=== PATIENT | female | born 1975 | race Caucasian/White ===

== ENCOUNTER → 2020-03-19 07:48 | Outpatient (BNVA) | payer OTHER, SELFPAY | PROVIDERS: PCP Internal Medicine; Visit Provider Internal Medicine ==

== ENCOUNTER → 2020-05-07 07:59 | Outpatient (BNVA) | payer OTHER, SELFPAY | PROVIDERS: PCP Internal Medicine; Visit Provider Internal Medicine ==

== ENCOUNTER 2020-05-26 16:37 | Outpatient (REF) | payer OTHER, SELFPAY ==
[2020-05-26 18:53] LABS: Free T4 (Free Thyroxine) 0.75 ng/dL (0.71-1.85); Thyroid Stimulating Hormone 4.49 uIU/mL (0.32-4.0); Vitamin D 25-OH Total 36.9 ng/mL (>30)
[2020-05-28 05:42] LABS: Triiodothyronine T3 Total 111 ng/dL (76-181)
== END 2020-05-26 16:38 | disposition home or self-care (01) ==
LOC: HO.LAB 16:37
PROVIDERS: Visit Provider Internal Medicine
DX: E05.00 Thyrotoxicosis with diffuse goiter without thyrotoxic crisis or storm (principal); E55.9 Vitamin D deficiency, unspecified
CPT/HCPCS: 36415; 82306; 84439; 84443; 84480

== ENCOUNTER 2020-06-16 16:50 | Outpatient (REF) | payer OTHER, SELFPAY ==
[2020-06-16 18:48] LABS: Free T4 (Free Thyroxine) 0.94 ng/dL (0.71-1.85); Thyroid Stimulating Hormone 1.59 uIU/mL (0.32-4.0)
[2020-06-18 05:51] LABS: Triiodothyronine T3 Total 106 ng/dL (76-181)
[2020-06-21 18:57] LABS: FT4 by Equilib. Dialysis 1.4 ng/dL (0.9-2.2)
== END 2020-06-16 16:51 | disposition home or self-care (01) ==
LOC: HO.LAB 16:50
PROVIDERS: PCP Internal Medicine; Visit Provider Internal Medicine
DX: E05.00 Thyrotoxicosis with diffuse goiter without thyrotoxic crisis or storm (principal)
CPT/HCPCS: 36415; 84439; 84443; 84480

== ENCOUNTER → 2020-06-26 07:30 | Outpatient (BNVA) | payer OTHER, SELFPAY | PROVIDERS: PCP Internal Medicine; Visit Provider Internal Medicine ==

== ENCOUNTER 2022-11-26 12:22 | Outpatient (AMB) | payer OTHER, SELFPAY ==
[2022-11-26 12:26] VITALS: BP 114/64; PULSE 73; O2SAT 97; BMI 25.8
--- NOTE | 2022-11-26 12:26 | MHC.PC.OV ---
Vital Signs 11/26/22 12:26 Height 5 ft 4 in Weight 150 lb 8 oz BMI 25.8 BP 114/64 Blood Pressure Location Lt brachial Position Sitting Pulse 73 Pulse Source Pulse Oximeter Pulse Oximetry (%) 97 Oxygen Delivery Method Room Air Intake Visit Reasons: Thyroid swelling Allergies Aspirin Allergy (Unknown, Uncoded 08/25/21 13:47) Tremors Medication List - Last Reconciled 11/26/22 by Perla Gonzales MD cetirizine (Zyrtec) 10 mg PO DAILY PRN lorazepam 1 mg PO TID methimazole 5 mg PO daily; 30 days montelukast 10 mg PO DAILY multivitamin 1 tab PO DAILY Tobacco use date assessed: 11/26/22 Dental Screening Dental Screen Date: 11/26/22 Did you have a dental visit in the last 12 months?: No Did you have a dental problem in the last 6 months where you did not have access to dental care?: No Was dental information given to patient?: Patient has dentist HPI HPI Comments History of Present Illness Details Pt presents for PE. PFS Medical History (Updated 11/26/22 @ 14:33 by Perla Gonzales MD) Vitamin D deficiency Annual physical exam Goiter Allergic rhinitis Anxiety Graves disease Surgical History No pertinent past surgical history Family History Unknown Unknown family medical history Mother Thyroid disease Social History Household Members: Significant Other Housing: House Patient Tobacco Use Status: Never used Tobacco e-Cigarette/Vaping Use: Never Used service: No Current occupational status: employed Cognitive needs: No Hearing needs: No Vision needs: No Questionnaire PHQ-9 Over the last 2 weeks, how often have you been bothered by any of the following problems? 1. Little interest or pleasure in doing things: not at all 2. Feeling down, depressed, or hopeless: several days 3. Trouble falling or staying asleep, or sleeping too much: several days 4. Feeling tired or having little energy: not at all 5. Poor appetite or overeating: not at all 6. Feeling bad about yourself - or that you are a failure or have let yourself or your family down: not at all 7. Trouble concentrating on things, such as reading the newspaper or watching television: not at all 8. Moving or speaking so slowly that other people could have noticed. Or the opposite - being so fidgety or restless that you have been moving around a lot more than usual: not at all 9. Thoughts that you would be better off or of hurting yourself in some way: not at all Total score: 2 Depression Screening Interpretation: Negative Depression Screening Done: Yes Source: Developed by Drs. Jacob Lewis, Jihan Benitez, Luigi Gutierrez and colleagues, with an educational deepa from [employer]. Thrive Questionnaire Date Thrive assessed: 11/26/22 I am a: Patient What is your living situation today?: I have a steady place to live Within the past 12 months, did the food you bought not last and you didn't have the money to get more?: Never true Within the past 12 months, did you worry whether your food would run out before you got money to buy more?: Never true Do you have trouble paying for medicines?: No Do you have trouble getting transportation to medical appointments?: No Do you have trouble paying your heating and electricity bill?: No Do you have trouble taking care of your child, family member or friend?: No Do you have trouble with day-to-day activities such as bathing, preparing meals, shopping, managing finances, etc.?: No Are you currently unemployed and looking for a job?: No Are you interested in more education?: No Please select the resources that you would like help with: None Currently or been in a relationship where the following occur: no concerns reported AUDIT C Alcohol Use Questionnaire (AUDIT-C) 1. How often do you have a drink containing alcohol?: Never 3. How often do you have six or more drinks on one occasion?: Never Total Score: 0 Score Reviewed/Action Taken: Yes WANDER-7 AMB Questionnaire WANDER-7 Date WANDER - 7 assessed: 11/26/22 Feeling nervous, anxious, or on edge: 0 = Not at all Not being able to stop or control worryin = Not at all Worrying too much about different things: 0 = Not at all Trouble relaxin = Not at all Being so restless that it is hard to sit still: 0 = Not at all Becoming easily annoyed or irritable: 0 = Not at all Feeling afraid as if something awful might happen: 0 = Not at all Total WANDER-7 score (0-4 normal; 5-9 mild; 10-14 moderate; 15-21 severe): 0 Source: Developed by Drs. Jacob Lewis, Jihan Benitez, Luigi Gutierrez and colleagues, with an educational deepa from [employer]. Review of Systems Const All systems reviewed & are unremarkable except as noted in HPI and below Reports no additional complaints Eyes Reports no additional complaints ENT Reports no additional complaints Card Reports no additional complaints Resp Reports no additional complaints GI Reports no additional complaints Reports no additional complaints Physical exam (Primary Care) Vital Signs: Last Vital Signs Pulse 73 11/26/22 12:26 BP 114/64 11/26/22 12:26 Pulse Ox 97 11/26/22 12:26 Oxygen Delivery Method Room Air 11/26/22 12:26 BMI result Body Mass Index 25.8 Tobacco/Smoking Status: Tobacco use Status Tobacco use date assessed 11/26/22 11/26/22 12:29 Patient Tobacco Use Status Never used Tobacco 11/26/22 12:29 e-Cigarette/Vaping Use Never Used 11/26/22 12:29 Depression Screening Interpretation: Negative Thrive Assessment: Date of Thrive Assessment Date Thrive assessed 08/25/21 11/26/22 12:29 Currently or been in a relationship where the following occur: no concerns reported Const General: no acute distress HENMT Head: Yes normal to inspection General nose exam: Normal external nose present Face and sinus: Yes normal facial exam Eyes General: appearance normal, both eyes and all related structures Neck Neck: Yes no lymphadenopathy and Yes supple Resp Effort & Inspection: normal respiratory effort Auscultation: clear to auscultation bilaterally Cardio Rhythm: regular rhythm Heart sounds: S1 normal heart sound present and S2 normal heart sound present GI Inspection: Yes normal to inspection Palpation (GI): Soft to palpation Percussion: Yes normal to percussion Auscultation: normal bowel sounds Assessment and Plan Assessment & Plan (1) Graves disease: Comment: on Methimazole Code(s): E05.00 - Thyrotoxicosis with diffuse goiter without thyrotoxic crisis or storm Plan: Check TSH patient has an appointment with a new social science analyst in March (2) Anxiety: Comment: /, f/u psychiatristHair pSYCH Code(s): F41.9 - Anxiety disorder, unspecified (3) Annual physical exam: Code(s): Z00.00 - Encounter for general adult medical examination without abnormal findings Plan: Well-balanced diet regular physical activity discussed with the patient she will return for fasting blood work. Colon cancer screening discussed with the patient. she declined colonoscopy. Cologuard will be checked. 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 Panel Fast Today E04.2 - Nontoxic multinodular goiter, E05.00 - Thyrotoxicosis with diffuse goiter without thyrotoxic crisis or storm Lipid Panel Today E04.2 - Nontoxic multinodular goiter, E05.00 - Thyrotoxicosis with diffuse goiter without thyrotoxic crisis or storm TSH reflex Free T4 Today E04.2 - Nontoxic multinodular goiter, E05.00 - Thyrotoxicosis with diffuse goiter without thyrotoxic crisis or storm Vitamin D 25-OH Total Today E04.2 - Nontoxic multinodular goiter, E05.00 - Thyrotoxicosis with diffuse goiter without thyrotoxic crisis or storm Referrals Cologuard Test Z12.11 - Encounter for screening for malignant neoplasm of colon, Z12.12 - Encounter for screening for malignant neoplasm of rectum Coding Level of Care Code Est Pt Prev Care 40-64y(50088) Diagnoses Graves disease E05.00 Anxiety F41.9 Annual physical exam Z00.00
== END 2022-11-26 14:37 | disposition home or self-care (01) ==
PROVIDERS: PCP Internal Medicine; Visit Provider Internal Medicine
DX: E05.00 Thyrotoxicosis with diffuse goiter without thyrotoxic crisis or storm (principal); F41.9 Anxiety disorder, unspecified; Z00.00 Encounter for general adult medical examination without abnormal findings
CPT/HCPCS: 99396

== ENCOUNTER 2022-12-03 12:19 | Outpatient (REF) | payer OTHER, SELFPAY ==
[2022-12-03 13:32] LABS: MANUAL DIFF FLAG NO
[2022-12-03 13:54] LABS: Basophils Absolute Auto 0.1 X10*3/uL (0.0-0.2); Basophils Percent Auto 0.6 % (0-2); Eosinophils Absolute Auto 0.2 X10*3/uL (0.0-0.4); Eosinophils Percent Auto 2.2 % (0-4); Hematocrit 42.9 % (37.0-47.0); Hemoglobin 14.6 g/dl (12.0-16.0); Imm Gran Abs Auto 0.02 X10*3/uL (0.00-0.03); Imm Gran Pct Auto 0.2 % (0.0-0.4); Lymphocytes Absolute Auto 2.5 X10*3/uL (1.2-4.9); Lymphocytes Percent Auto 28.3 % (20-40); Mean Corpuscular Hemoglobin 31.6 pg (27.0-33.0); Mean Corpuscular Volume 92.9 fL (80.0-98.0); Mean Platelet Volume 9.6 fL (9.4-12.3); Monocytes Absolute Auto 0.7 X10*3/uL (0.1-1.2); Monocytes Percent Auto 7.6 % (2-11); Neutrophils Absolute Auto 5.4 x10*3/uL (2.0-8.3); Neutrophils Percent Auto 61.1 % (45-73); Platelet Count 277 X10*3/uL (160-400); Red Blood Count 4.62 X10*6/uL (4.20-5.50); Red Cell Distribution Width 12.1 % (11.0-16.0); White Blood Count 8.9 X10*3/uL (4.8-10.8)
[2022-12-03 14:50] LABS: Alanine Aminotransferase 17 U/L (0-31); Albumin Level 4.3 g/dL (3.5-5.0); Alkaline Phosphatase 66 U/L (39-117); Anion Gap 14 (12-20); Aspartate Amino Transferase 18 U/L (5-31); Bilirubin Total 0.8 mg/dL (0.0-1.0); Blood Urea Nitrogen 9 mg/dL (9-16); Carbon Dioxide 24 mmol/L (22-29); Chloride 105 mmol/L (96-108); Cholesterol 158 mg/dL (<200); Estimated Glomerular Filt Rate > 60; Glucose Fasting 90 mg/dL (60-99); HDL Cholesterol 42 mg/dL (>40); LDL Cholesterol Calculated 98 mg/dL (<100); Potassium 3.8 mmol/L (3.3-5.1); Sodium 139 mmol/L (135-145); Total Protein 7.5 g/dL (6.5-8.0); Triglycerides 91 mg/dL (<150)
[2022-12-03 14:58] LABS: TSH reflex Free T4 0.01 uIU/mL (0.32-4.0); Vitamin D 25-OH Total 33.2 ng/mL (>30)
[2022-12-03 16:12] LABS: Free T4 (Free Thyroxine) 1.21 ng/dL (0.71-1.85)
== END 2022-12-03 12:20 | disposition home or self-care (01) ==
LOC: HO.HMGCLDS 12:19
PROVIDERS: PCP Internal Medicine; Visit Provider Internal Medicine
DX: E04.2 Nontoxic multinodular goiter (principal); E05.00 Thyrotoxicosis with diffuse goiter without thyrotoxic crisis or storm
CPT/HCPCS: 36415; 80053; 80061; 82306; 84439; 84443; 85025

== ENCOUNTER 2023-07-06 11:04 | Outpatient (AMB) | payer OTHER, SELFPAY ==
[2023-07-06 11:32] VITALS: BP 110/80; PULSE 58; TEMP 36.2; O2SAT 99; BMI 24.0
--- NOTE | 2023-07-06 11:32 | AM.OFFWIN_ITS ---
Intake Vital Signs 07/06/23 11:32 Height 5 ft 4 in Weight 140 lb BMI 24.0 BP 110/80 Blood Pressure Location Lt brachial Position Sitting Pulse 58 Pulse Source Pulse Oximeter Temp 97.2 F Temp Source Temporal Artery Scan Pulse Oximetry (%) 99 Oxygen Delivery Method Room Air Intake Visit Reasons: EP dog bite lft hand Intake Note: pt is here today for dog bite lft hand started tuesday Patient Tobacco Use Status: Never used Tobacco Allergies Aspirin Allergy (Unknown, Uncoded 08/25/21 13:47) Tremors Do you need a note to return to daycare/school/sports/work: Yes HPI EP dog bite lft hand HPI Details 48-year-old female patient presents toda y following a dog bite on her left hand. She states that she was trying to separate 2 fighting dogs this past Tuesday, when her roommates [place] dog bit her several times on her left hand and wrist. She reports that dog is up-to-date on all vaccinations. She has been cleansing the area with soap and water, applying bacitracin to healing scabs. She denies any significant pain 2 areas. She reports she has good range of motion in hand, wrist, and all fingers. She states she was encouraged by coworkers to come be seen for antibiotics. [facility] Medical History Vitamin D deficiency Annual physical exam Goiter Allergic rhinitis Anxiety Graves disease Surgical History No pertinent past surgical history Family History Unknown Unknown family medical history Mother Thyroid disease Social History Household Members: Significant Other Housing: House Patient Tobacco Use Status: Never used Tobacco e-Cigarette/Vaping Use: Never Used service: No Current occupational status: employed Cognitive needs: No Hearing needs: No Vision needs: No Review of Systems Const All systems reviewed & are unremarkable except as noted in HPI and below Physical Exam Vital Signs: BMI result Body Mass Index 24.0 Const General: cooperative, healthy appearing and no acute distress Resp Effort & Inspection: normal respiratory effort Skin Other: Multiple healing/scabbed puncture wounds to dorsal aspect of left hand and medial left wrist, most significant at left MCP. No surrounding erythema, warmth. No drainage, swelling, or edema. Full ROM hand, wrist, all fingers. Extrem General: Yes capillary refill normal and Yes no clubbing, cyanosis or edema Psych Appearance: grossly normal Mental Status: mental status grossly normal Speech and movement: Normal speech and movement present Assessment & Plan Assessment & Plan (1) Dog bite of multiple sites of left hand and fingers: Code(s): S61.452A - Open bite of left hand, initial encounter; S61.259A - Open bite of unspecified finger without damage to nail, initial encounter; W54.0XXA - Bitten by dog, initial encounter Qualifiers: Encounter type: initial encounter Qualified Code(s): S61.452A - Open bite of left hand, initial encounter; S61.259A - Open bite of unspecified finger without damage to nail, initial encounter; W54.0XXA - Bitten by dog, initial encounter Plan: Augmentin BID 5 days for dog bite. Reviewed indications, use, possible side effects of medication. Advised to keep area clean and dry. May apply topical bacitracin as needed. Reviewed signs/symptoms of infection to monitor for, and to return to clinic as needed if these occur. Patient verbalizes understanding and agrees to plan. Medications: New amoxicillin-pot clavulanate 875-125 mg 1 tab PO BID 5 days 10 tabs 0RF S61.259A - Open bite of unspecified finger without damage to nail, initial encounter, S61.452A - Open bite of left hand, initial encounter, W54.0XXA - Bitten by dog, initial encounter Coding Level of Care Code Est Pt Level 4 (57009) Diagnoses Dog bite of multiple sites of left hand and fingers, initial encounter S61.452A; S61.259A; W54.0XXA Encounter type: initial encounter
== END 2023-07-06 12:39 | disposition home or self-care (01) ==
PROVIDERS: PCP Internal Medicine; Visit Provider Nurse Practitioner Family
DX: S61.452A Open bite of left hand, initial encounter (principal); S61.259A Open bite of unspecified finger without damage to nail, initial encounter; W54.0XXA Bitten by dog, initial encounter
CPT/HCPCS: 99214

== ENCOUNTER 2023-12-02 12:48 | Outpatient (AMB) | payer OTHER, SELFPAY ==
[2023-12-02 12:51] VITALS: BP 118/80; PULSE 70; O2SAT 98; BMI 25.1
--- NOTE | 2023-12-02 12:51 | MHC.PC.OV ---
Vital Signs 12/02/23 12:51 Height 5 ft 4 in Weight 146 lb BMI 25.1 BP 118/80 Blood Pressure Location Lt brachial Position Sitting Pulse 70 Pulse Source Pulse Oximeter Pulse Oximetry (%) 98 Oxygen Delivery Method Room Air Intake Visit Reasons: med f/u Intake Note: Pt is here today for a follow up visit. Allergies Aspirin Allergy (Unknown, Uncoded 12/02/23 12:52) Tremors Medication List - Last Reconciled 12/02/23 by Perla Gonzales MD cetirizine (Zyrtec) 10 mg PO DAILY PRN lorazepam 0.5 mg PO TID methimazole 5 mg PO daily; montelukast 10 mg PO DAILY multivitamin 1 tab PO DAILY Tobacco use date assessed: 12/02/23 Dental Screening Dental Screen Date: 12/02/23 Did you have a dental visit in the last 12 months?: Yes Did you have a dental problem in the last 6 months where you did not have access to dental care?: No Was dental information given to patient?: Patient has dentist [facility] Medical History (Updated 12/02/23 @ 13:19 by Perla Gonzales MD) Vitamin D deficiency Annual physical exam Goiter Allergic rhinitis Anxiety Graves disease Surgical History No pertinent past surgical history Family History Unknown Unknown family medical history Mother Thyroid disease Social History Household Members: Significant Other Housing: House Patient Tobacco Use Status: Never used Tobacco e-Cigarette/Vaping Use: Never Used service: No Current occupational status: employed Cognitive needs: No Hearing needs: No Vision needs: No Questionnaire PHQ-9 Over the last 2 weeks, how often have you been bothered by any of the following problems? 1. Little interest or pleasure in doing things: not at all 2. Feeling down, depressed, or hopeless: not at all 3. Trouble falling or staying asleep, or sleeping too much: not at all 4. Feeling tired or having little energy: several days 5. Poor appetite or overeating: not at all 6. Feeling bad about yourself - or that you are a failure or have let yourself or your family down: not at all 7. Trouble concentrating on things, such as reading the newspaper or watching television: not at all 8. Moving or speaking so slowly that other people could have noticed. Or the opposite - being so fidgety or restless that you have been moving around a lot more than usual: not at all 9. Thoughts that you would be better off or of hurting yourself in some way: not at all Total score: 1 Depression Screening Interpretation: Negative Depression Screening Done: Yes 96867 - PHQ-9 Billing: Yes Source: Developed by Drs. Jacob Lewis, Jihan Benitez, Luigi Gutierrez and colleagues, with an educational deepa from [employer]. Thrive Questionnaire Date Thrive assessed: 12/02/23 I am a: Patient What is your living situation today?: I have a steady place to live Within the past 12 months, did the food you bought not last and you didn't have the money to get more?: Sometimes True Within the past 12 months, did you worry whether your food would run out before you got money to buy more?: Sometimes True Do you have trouble paying for medicines?: I choose not to answer this question Do you have trouble getting transportation to medical appointments?: No Do you have trouble paying your heating and electricity bill?: No Do you have trouble taking care of your child, family member or friend?: No Do you have trouble with day-to-day activities such as bathing, preparing meals, shopping, managing finances, etc.?: No Are you currently unemployed and looking for a job?: No Are you interested in more education?: No Please select the resources that you would like help with: None Currently or been in a relationship where the following occur: No concerns reported THRIVE Score: 2 AUDIT C Alcohol Use Questionnaire (AUDIT-C) 1. How often do you have a drink containing alcohol?: Monthly or less 2. How many drinks containing alcohol do you have on a typical day when you are drinking?: 1 or 2 3. How often do you have six or more drinks on one occasion?: Never Total Score: 1 WANDER-7 AMB Questionnaire WANDER-7 Date WANDER - 7 assessed: 10/25/24 Feeling nervous, anxious, or on edge: 0 = Not at all Not being able to stop or control worryin = Not at all Worrying too much about different things: 1 = Several days Trouble relaxin = Not at all Being so restless that it is hard to sit still: 0 = Not at all Becoming easily annoyed or irritable: 0 = Not at all Feeling afraid as if something awful might happen: 0 = Not at all Total WANDER-7 score (0-4 normal; 5-9 mild; 10-14 moderate; 15-21 severe): 1 Source: Developed by Drs. Jacob Lewis, Jihan Benitez, Luigi Gutierrez and colleagues, with an educational deepa from [employer]. WANDER-7 Assessment Billing WANDER-7 Assessment Tool: WANDER-7 Assessment 88884 Review of Systems Const All systems reviewed & are unremarkable except as noted in HPI and below Eyes Reports no additional complaints ENT Reports no additional complaints Card Reports no additional complaints Resp Reports no additional complaints GI Reports no additional complaints Reports no additional complaints Physical exam (Primary Care) Vital Signs: Last Vital Signs Pulse 70 12/02/23 12:51 BP 118/80 12/02/23 12:51 Pulse Ox 98 12/02/23 12:51 Oxygen Delivery Method Room Air 12/02/23 12:51 BMI result Body Mass Index 25.1 Tobacco/Smoking Status: Tobacco use Status Tobacco use date assessed 12/02/23 12/02/23 12:56 Patient Tobacco Use Status Never used Tobacco 12/02/23 12:56 e-Cigarette/Vaping Use Never Used 12/02/23 12:56 PHQ-9: PHQ-9 Score PHQ-9: Total score 1 12/02/23 12:56 Depression Screening Interpretation: Negative Thrive Assessment: Date of Thrive Assessment Date Thrive assessed 12/02/23 12/02/23 12:56 Currently or been in a relationship where the following occur: No concerns reported Const General: no acute distress HENMT Head: Yes normal to inspection Face and sinus: Yes normal facial exam Throat: Yes posterior oropharynx normal Eyes General: appearance normal, both eyes and all related structures Neck Neck: Yes no lymphadenopathy and Yes supple Resp Effort & Inspection: normal respiratory effort Auscultation: clear to auscultation bilaterally Cardio Rhythm: regular rhythm Heart sounds: S1 normal heart sound present and S2 normal heart sound present GI Inspection: Yes normal to inspection Palpation (GI): Soft to palpation Percussion: Yes normal to percussion Auscultation: normal bowel sounds Coding Level of Care Code Est Pt Prev Care 40-64y(31131) Diagnoses Menopause Z78.0 Graves disease E05.00 Annual physical exam Z00.00 Vitamin D deficiency E55.9 Anxiety F41.9 Additional Codes WANDER-7 Assessment Billing - WANDER-7 Assessment Tool: WANDER-7 Assessment 20906 ([id number]) Assessment & Plan Assessment & Plan (1) Menopause: Comment: 2022, [employer] MA[employer]TE[employer]CE ME[employer]IC FOR [employer] Code(s): Z78.0 - Asymptomatic menopausal state Category: Medical Plan: Established with Detective Lieutenant (2) Graves disease: Comment: on Methimazole, f/u endo Dr. Gabriel Salazar Code(s): E05.00 - Thyrotoxicosis with diffuse goiter without thyrotoxic crisis or storm Category: Medical Plan: Check TSH (3) Annual physical exam: Code(s): Z00.00 - Encounter for general adult medical examination without abnormal findings Category: Medical Plan: Well-balanced diet regular physical activity discussed with the patient she declined colonoscopy Cologuard is ordered (4) Vitamin D deficiency: Code(s): E55.9 - Vitamin D deficiency, unspecified Category: Medical Plan: Continue vitamin-D supplement (5) Anxiety: Comment: /, f/u psychiatrist, on Lorazepam 0.5 mg tid, cutting down, Hair pSYCH Code(s): F41.9 - Anxiety disorder, unspecified Category: Medical Plan: Follow-up with a psychiatrist Orders: Orders Comprehensive [place]. Panel Fast Today E05.00 - Thyrotoxicosis with diffuse goiter without thyrotoxic crisis or storm, E55.9 - Vitamin D deficiency, unspecified, Z00.00 - Encounter for general adult medical examination without abnormal findings TSH reflex Free T4 Today E05.00 - Thyrotoxicosis with diffuse goiter without thyrotoxic crisis or storm, E55.9 - Vitamin D deficiency, unspecified, Z00.00 - Encounter for general adult medical examination without abnormal findings Lipid Panel Today E05.00 - Thyrotoxicosis with diffuse goiter without thyrotoxic crisis or storm, E55.9 - Vitamin D deficiency, unspecified, Z00.00 - Encounter for general adult medical examination without abnormal findings UA w Microscopic Today E05.00 - Thyrotoxicosis with diffuse goiter without thyrotoxic crisis or storm, E55.9 - Vitamin D deficiency, unspecified, Z00.00 - Encounter for general adult medical examination without abnormal findings Complete Blood Count Auto Diff Today E05.00 - Thyrotoxicosis with diffuse goiter without thyrotoxic crisis or storm, E55.9 - Vitamin D deficiency, unspecified, Z00.00 - Encounter for general adult medical examination without abnormal findings Triiodothyronine T3 Free Today E05.00 - Thyrotoxicosis with diffuse goiter without thyrotoxic crisis or storm, E55.9 - Vitamin D deficiency, unspecified, Z00.00 - Encounter for general adult medical examination without abnormal findings Referrals Cologuard Test E05.00 - Thyrotoxicosis with diffuse goiter without thyrotoxic crisis or storm, E55.9 - Vitamin D deficiency, unspecified, Z00.00 - Encounter for general adult medical examination without abnormal findings, Z12.11 - Encounter for screening for malignant neoplasm of colon, Z12.12 - Encounter for screening for malignant neoplasm of rectum Medications: Refilled montelukast 10 mg PO DAILY 90 tabs 3RF methimazole 5 mg PO daily; 90 tabs 6RF E05.00 - Thyrotoxicosis with diffuse goiter without thyrotoxic crisis or storm
== END 2023-12-02 13:20 | disposition home or self-care (01) ==
PROVIDERS: PCP Internal Medicine; Visit Provider Internal Medicine
DX: Z78.0 Asymptomatic menopausal state (principal); E05.00 Thyrotoxicosis with diffuse goiter without thyrotoxic crisis or storm; Z00.00 Encounter for general adult medical examination without abnormal findings; E55.9 Vitamin D deficiency, unspecified; F41.9 Anxiety disorder, unspecified

== ENCOUNTER → 2023-12-02 12:48 | Outpatient (BNVA) | payer OTHER, SELFPAY | PROVIDERS: PCP Internal Medicine; Visit Provider Internal Medicine | DX: E05.00 Thyrotoxicosis with diffuse goiter without thyrotoxic crisis or storm (principal); E55.9 Vitamin D deficiency, unspecified; F41.9 Anxiety disorder, unspecified; Z79.899 Other long term (current) drug therapy; Z78.0 Asymptomatic menopausal state | CPT/HCPCS: 96127 ==

== ENCOUNTER 2024-12-07 12:42 | Outpatient (AMB) | payer OTHER, SELFPAY ==
--- NOTE | 2024-12-07 12:49 | A.OFFPC_ITS ---
Vital Signs 12/07/24 12:50 Height 5 ft 4 in Weight 145 lb BMI 24.9 BP 110/62 Blood Pressure Location Lt brachial Position Sitting Respiration 16 Pulse 87 Pulse Source Pulse Oximeter Temp 98.9 F Temp Source Oral Pulse Oximetry (%) 97 Oxygen Delivery Method Room Air Intake Visit Reasons: Pain management- Whole body Intake Note: Pt is here today for a sick visit. Pt c/o pain in her legs and arms for a month and a half. Allergies Aspirin Allergy (Unknown, Uncoded 12/07/24 12:50) Tremors Medication List - Last Reconciled 12/07/24 by Perla Gonzales MD cetirizine (Zyrtec) 10 mg PO DAILY PRN lorazepam 0.5 mg PO TID methimazole 10 mg orally daily; montelukast 10 mg PO DAILY multivitamin 1 tab PO DAILY Tobacco use date assessed: 12/07/24 Dental Screening Dental Screen Date: 12/07/24 Did you have a dental visit in the last 12 months?: Yes Did you have a dental problem in the last 6 months where you did not have access to dental care?: No Was dental information given to patient?: Patient has dentist HPI Pain management- Whole body HPI Details Patient presents reporting general myalgia started in the lower extremities progressing to upper extremities. Patient reports stiffness in her joints in the morning lasting for few minutes. She denies any muscle weakness or joint swelling fever chills rash. Patient complains of lower back pain right more than left usually improved after walking. Patient has been taking 5 mg of methimazole for hyperthyroid but has not been able to see equipment [facility] for over a year because her appointment was rescheduled and then cancelled. Patient denies weight loss, increased sweating palpitations or chest pain. [facility]LY [facility] Medical History Vitamin D deficiency Annual physical exam Goiter Allergic rhinitis Anxiety Graves disease Surgical History No pertinent past surgical history Family History Unknown Unknown family medical history Mother Thyroid disease Social History Household Members: Significant Other Housing: House Patient Tobacco Use Status: Never used Tobacco e-Cigarette/Vaping Use: Never Used service: No Current occupational status: employed Cognitive needs: No Hearing needs: No Vision needs: No Questionnaire PHQ-9 Over the last 2 weeks, how often have you been bothered by any of the following problems? 1. Little interest or pleasure in doing things: not at all 2. Feeling down, depressed, or hopeless: not at all 3. Trouble falling or staying asleep, or sleeping too much: not at all 4. Feeling tired or having little energy: several days 5. Poor appetite or overeating: not at all 6. Feeling bad about yourself - or that you are a failure or have let yourself or your family down: not at all 7. Trouble concentrating on things, such as reading the newspaper or watching television: not at all 8. Moving or speaking so slowly that other people could have noticed. Or the opposite - being so fidgety or restless that you have been moving around a lot more than usual: several days 9. Thoughts that you would be better off or of hurting yourself in some way: not at all Total score: 2 Depression Screening Interpretation: Negative Depression Screening Done: Yes Source: Developed by Drs. Jacob Lewis, Jihan Benitez, Luigi Gutierrez and colleagues, with an educational deepa from [employer]. Thrive Questionnaire Date Thrive assessed: 12/02/23 I am a: Patient What is your living situation today?: I have a steady place to live Within the past 12 months, did the food you bought not last and you didn't have the money to get more?: Sometimes True Within the past 12 months, did you worry whether your food would run out before you got money to buy more?: I choose not to answer this question Do you have trouble paying for medicines?: No Do you have trouble getting transportation to medical appointments?: No Do you have trouble paying your heating and electricity bill?: No Do you have trouble taking care of your child, family member or friend?: No Do you have trouble with day-to-day activities such as bathing, preparing meals, shopping, managing finances, etc.?: No Are you currently unemployed and looking for a job?: No Are you interested in more education?: No Please select the resources that you would like help with: None Currently or been in a relationship where the following occur: No concerns reported THRIVE Score: 1 AUDIT C Alcohol Use Questionnaire (AUDIT-C) 1. How often do you have a drink containing alcohol?: 2-4 times a month 2. How many drinks containing alcohol do you have on a typical day when you are drinking?: 1 or 2 3. How often do you have six or more drinks on one occasion?: Never Total Score: 2 WANDER-7 AMB Questionnaire WANDER-7 Date WANDER - 7 assessed: 12/02/23 Feeling nervous, anxious, or on edge: 0 = Not at all Not being able to stop or control worryin = Not at all Worrying too much about different things: 0 = Not at all Trouble relaxin = Not at all Being so restless that it is hard to sit still: 0 = Not at all Becoming easily annoyed or irritable: 0 = Not at all Feeling afraid as if something awful might happen: 0 = Not at all Total WANDER-7 score (0-4 normal; 5-9 mild; 10-14 moderate; 15-21 severe): 0 Source: Developed by Drs. Jacob Lewis, Jihan Benitez, Luigi Gutierrez and colleagues, with an educational deepa from [employer]. Review of Systems Const All systems reviewed & are unremarkable except as noted in HPI and below Eyes Reports no additional complaints ENT Reports no additional complaints Card Reports no additional complaints Resp Reports no additional complaints GI Reports no additional complaints Reports no additional complaints Physical exam (Primary Care) Vital Signs: Last Vital Signs Temp 98.9 F 12/07/24 12:50 Pulse 87 12/07/24 12:50 Resp 16 12/07/24 12:50 BP 110/62 12/07/24 12:50 Pulse Ox 97 12/07/24 12:50 Oxygen Delivery Method Room Air 12/07/24 12:50 BMI result Body Mass Index 24.9 Tobacco/Smoking Status: Tobacco use Status Tobacco use date assessed 12/07/24 12/07/24 12:52 Patient Tobacco Use Status Never used Tobacco 12/07/24 12:52 e-Cigarette/Vaping Use Never Used 12/07/24 12:52 PHQ-9: PHQ-9 Score PHQ-9: Total score 2 12/07/24 13:59 Depression Screening Interpretation: Negative Thrive Assessment: Date of Thrive Assessment Date Thrive assessed 12/02/23 12/07/24 12:52 Currently or been in a relationship where the following occur: No concerns reported Const General: no acute distress HENMT Head: Yes normal to inspection Mouth: Normal oral and palatal mucosa present Eyes General: appearance normal, both eyes and all related structures Eyelids: No lid lag Neck Neck: Yes no lymphadenopathy and Yes supple Resp Effort & Inspection: normal respiratory effort Auscultation: clear to auscultation bilaterally Cardio Rhythm: regular rhythm Heart sounds: S1 normal heart sound present and S2 normal heart sound present GI Inspection: Yes normal to inspection Palpation (GI): Soft to palpation Percussion: Yes normal to percussion Auscultation: normal bowel sounds Neuro Cranial nerves: Yes CN's II-XII intact bilaterally Gait exam (Neuro): Normal gait present Motor exam (neuro): 5/5 motor strength present throughout Romberg Test: Negative Extrem Other: There is no small or large joint tenderness erythema or warmth. There is slight tenderness over large muscle groups in lower extremities, there is lower back paraspinal tenderness right more than left, straight leg rising 90 degrees bilaterally. Both hips with normal range of motion General: Yes no clubbing, cyanosis or edema Coding Level of Care Code Est Pt Level 3 (27600) Diagnoses Hyperthyroidism E05.90 Assessment & Plan Assessment & Plan (1) Hyperthyroidism: Code(s): E05.90 - Thyrotoxicosis, unspecified without thyrotoxic crisis or storm Category: Medical Plan: Blood work results from [facility] reviewed. TSH is suppressed and Free T4 3.33. Patient was recommended to increase methimazole to 10 mg a day repeat TSH ,T4 and T3 in 6 weeks. Patient will call to schedule an appointment with [facility] as soon as possible Orders: Orders TSH reflex Free T4 6 Weeks E05.90 - Thyrotoxicosis, unspecified without thyrotoxic crisis or storm Triiodothyronine T3 Free 6 Weeks E05.90 - Thyrotoxicosis, unspecified without thyrotoxic crisis or storm Medications: New meloxicam 15 mg PO DAILY 10 tabs 0RF Changed From methimazole 5 mg PO daily; 90 tabs 6RF E05.00 - Thyrotoxicosis with diffuse goiter without thyrotoxic crisis or storm To methimazole 10 mg orally daily; 180 tabs 0RF E05.00 - Thyrotoxicosis with diffuse goiter without thyrotoxic crisis or storm
[2024-12-07 12:50] VITALS: BP 110/62; PULSE 87; RESP 16; TEMP 37.2; O2SAT 97; BMI 24.9
== END 2024-12-07 14:14 | disposition home or self-care (01) ==
LOC: HO.HMCC 12:42
PROVIDERS: PCP Internal Medicine; Visit Provider Internal Medicine
DX: E05.90 Thyrotoxicosis, unspecified without thyrotoxic crisis or storm (principal)

== ENCOUNTER 2025-01-21 14:03 | Outpatient (AMB) | payer OTHER, SELFPAY ==
[2025-01-21 14:32] VITALS: BP 124/70; PULSE 91; O2SAT 98; BMI 24.7
--- NOTE | 2025-01-21 14:32 | MHC.PC.OV ---
Vital Signs 01/21/25 14:32 Height 5 ft 4 in Weight 144 lb BMI 24.7 BP 124/70 Blood Pressure Location Rt brachial Position Sitting Pulse 91 Pulse Source Pulse Oximeter Pulse Oximetry (%) 98 Oxygen Delivery Method Room Air Intake Visit Reasons: 7 weeks f/up Intake Note: Pt is here today for 7 weeks Allergies Aspirin Allergy (Unknown, Uncoded 01/21/25 14:35) Tremors Medication List - Last Reconciled 01/21/25 by Perla Gonzales MD cetirizine (Zyrtec) 10 mg PO DAILY PRN lorazepam 0.5 mg PO TID methimazole 10 mg orally daily; montelukast 10 mg PO DAILY multivitamin 1 tab PO DAILY Tobacco use date assessed: 01/21/25 Dental Screening Dental Screen Date: 12/07/24 HPI 7 weeks f/up HPI Details Patient presents for a follow-up of hyperthyroidism controlled on methimazole for 4 years. 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 She denies complaints [facility] Medical History (Updated 01/21/25 @ 20:39 by Perla Gonzales MD) Vitamin D deficiency Annual physical exam Goiter Allergic rhinitis Anxiety Graves disease Surgical History No pertinent past surgical history Family History Unknown Unknown family medical history Mother Thyroid disease Social History Household Members: Significant Other Housing: House Patient Tobacco Use Status: Never used Tobacco e-Cigarette/Vaping Use: Never Used service: No Current occupational status: employed Cognitive needs: No Hearing needs: No Vision needs: No Questionnaire Thrive Questionnaire Date Thrive assessed: 12/07/24 I am a: Patient What is your living situation today?: I have a steady place to live Within the past 12 months, did the food you bought not last and you didn't have the money to get more?: Sometimes True Within the past 12 months, did you worry whether your food would run out before you got money to buy more?: I choose not to answer this question Do you have trouble paying for medicines?: No Do you have trouble getting transportation to medical appointments?: No Do you have trouble paying your heating and electricity bill?: No Do you have trouble taking care of your child, family member or friend?: No Do you have trouble with day-to-day activities such as bathing, preparing meals, shopping, managing finances, etc.?: No Are you currently unemployed and looking for a job?: No Are you interested in more education?: No Please select the resources that you would like help with: None Currently or been in a relationship where the following occur: No concerns reported THRIVE Score: 1 WANDER-7 AMB Questionnaire WANDER-7 Date WANDER - 7 assessed: 12/02/23 Source: Developed by Drs. Jacob Lewis, Jihan Benitez, Luigi Gutierrez and colleagues, with an educational deepa from [employer]. Review of Systems Const All systems reviewed & are unremarkable except as noted in HPI and below Eyes Reports no additional complaints ENT Reports no additional complaints Card Reports no additional complaints Resp Reports no additional complaints GI Reports no additional complaints Reports no additional complaints Physical exam (Primary Care) Vital Signs: Last Vital Signs Pulse 91 01/21/25 14:32 BP 124/70 01/21/25 14:32 Pulse Ox 98 01/21/25 14:32 Oxygen Delivery Method Room Air 01/21/25 14:32 BMI result Body Mass Index 24.7 Tobacco/Smoking Status: Tobacco use Status Tobacco use date assessed 01/21/25 01/21/25 14:37 Patient Tobacco Use Status Never used Tobacco 01/21/25 14:37 e-Cigarette/Vaping Use Never Used 01/21/25 14:37 Thrive Assessment: Date of Thrive Assessment Date Thrive assessed 12/07/24 01/21/25 14:37 Currently or been in a relationship where the following occur: No concerns reported Const General: no acute distress HENMT Head: Yes normal to inspection Ears: hearing grossly normal bilaterally Mouth: Normal oral and palatal mucosa present Throat: Yes posterior oropharynx normal Eyes General: appearance normal, both eyes and all related structures Neck Neck: Yes no lymphadenopathy and Yes supple Resp Effort & Inspection: normal respiratory effort Auscultation: clear to auscultation bilaterally Cardio Rhythm: regular rhythm Heart sounds: S1 normal heart sound present and S2 normal heart sound present Coding Level of Care Code Est Pt Level 3 (59453) Diagnoses Hyperthyroidism E05.90 Assessment & Plan Assessment & Plan (1) Hyperthyroidism: Code(s): - Thyrotoxicosis, unspecified without thyrotoxic crisis or storm Category: Medical Plan: cont 10 mg Methimazole and repeat TSH in 3 weeks and adjust the dose, refer to [facility], pt will check with her insurance Orders: Orders US thyroid Today E0 - Thyrotoxicosis, unspecified without thyrotoxic crisis or storm TSH reflex Free T4 3 Weeks E0 - Thyrotoxicosis, unspecified without thyrotoxic crisis or storm Comprehensive [place]. Panel Fast 3 Months E0 - Thyrotoxicosis, unspecified without thyrotoxic crisis or storm Complete Blood Count Auto Diff 3 Months E0 - Thyrotoxicosis, unspecified without thyrotoxic crisis or storm Lipid Panel 3 Months E0. - Thyrotoxicosis, unspecified without thyrotoxic crisis or storm Complete Blood Count Auto Diff 3 Weeks E0. - Thyrotoxicosis, unspecified without thyrotoxic crisis or storm Comprehensive [place]. Panel Fast 3 Weeks E0. - Thyrotoxicosis, unspecified without thyrotoxic crisis or storm Triiodothyronine T3 Free 3 Weeks E0. - Thyrotoxicosis, unspecified without thyrotoxic crisis or storm TSH reflex Free T4 3 Months E0. - Thyrotoxicosis, unspecified without thyrotoxic crisis or storm Medications: Refilled methimazole 10 mg orally daily; 180 tabs 2RF E05.00 - Thyrotoxicosis with diffuse goiter without thyrotoxic crisis or storm
--- OUTSIDE RECORDS SUMMARY | 2025-01-21 20:32 | XMS_ITS | Data Portability ---
Author Organization [place] - [facility],, YAZMIN KOCH MD Address [address] [address] Care Team Providers Care Electron Microscopist Name Role Phone ROSA CERVANTES Primary Care Provider [phone] Assessment No assessment recorded. Plan of Treatment Reminders Order Date Submit Date Provider Last Modified By Organization Details Last Modified Time Details Appointments None recorded. Lab cytology report, thin prep, smear or scraping, cervical or vaginal 2024 025 JEREMY [facility] (Centralized Electronic Ordering - All Locations), Patient Can Go To The Location Of Their Choice, [id number] 5 16:32:44 hemoglobi n, gastroint estinal, stool 2024 025 [email or web address] 1 In-Office Order, Internal Use Only DO Not Attach Compendium DO Not Attach Compendium, Do Not Delete/merge, [id number] 5 15:41:13 cytology report, thin prep, smear or scraping, cervical or vaginal 2023 024 JEREMY [facility] (Centralized Electronic Ordering - All Locations), Patient Can Go To The Location Of Their Choice, [address] 4 18:06:13 hemoglobi n, gastroint estinal, stool 2023 024 [email or web address] 1 In-Office Order, Internal Use Only DO Not Attach Compendium DO Not Attach Compendium, Do Not Delete/merge, [id number] 4 12:06:55 pap test, thinprep, cervical 2022 023 [email or web address] [facility] (Centralized Electronic Ordering - All Locations), Patient Can Go To The Location Of Their Choice, [address] 3 07:44:07 fecal occult blood, stool 2022 023 [email or web address] 1 In-Office Order, Internal Use Only DO Not Attach Compendium DO Not Attach Compendium, Do Not Delete/merge, [id number] 3 15:51:13 pap test, thinprep, cervical 2021 022 [email or web address] [facility], Cytopathology Service, [address] [place], [address], 2 07:15:54 urinalysi s, dipstick 2021 022 [email or web address] 1 In-Office Order, Internal Use Only DO Not Attach Compendium DO Not Attach Compendium, Do Not Delete/merge, 2 13:45:19 culture, urine 2021 022 [email or web address] [facility], [address] [place] [address], [address], 2 07:30:54 urinalysi s, dipstick 2021 022 JEREMY In-Office Order, Internal Use Only DO Not Attach Compendium DO Not Attach Compendium, Do Not Delete/merge, 2 14:02:13 culture, urine 2021 022 [facility], [address] [place] [address], [address], 2 12:52:46 fecal occult blood, stool 2021 022 [email or web address] 1 In-Office Order, Internal Use Only DO Not Attach Compendium DO Not Attach Compendium, Do Not Delete/merge, 2 13:45:19 CT + NG RNA, cervical 2021 022 [email or web address] [facility], Cytopathology Service, [address] [place], [address], 2 07:30:55 HIV (1+2) Ab screen, serum 2021 022 [email or web address] [facility], [address] [place] [address], [address], 07:30:45 RPR (rapid plasma reagin), serum 2021 022 [email or web address] [facility], [address] [place] [address], [address], 07:30:45 hepatitis (A+B+C) panel, serum 2021 022 [email or web address] [facility], [address] [place] [address], [address], 07:30:45 CBC w/ auto diff 2021 022 [email or web address] [facility], [address] [place] [address], [address], 07:30:44 iron + TIBC + ferritin, serum 2021 022 [email or web address] [facility], [address] [place] [address], [address], 07:30:45 TSH + free T4, serum 2021 022 [email or web address] [facility], [address] [place] [address], [address], 07:30:45 Referral None recorded. Procedures None recorded. Surgeries None recorded. Imaging MAMMO, screening , digital, bilateral - Breast Aspiratio n and/or Biopsy if needed 2024 025 [email or web address] [facility] Orders, [address], [place], [address], 09:05:49 MAMMO, screening , digital, bilateral - Breast Aspiratio n and/or Biopsy if needed 2023 024 [facility] Imaging Orders, [address], [place], [address], 5 07:17:55 MAMMO, screening , digital, bilateral - Breast Aspiratio n and/or Biopsy if needed 2022 023 [facility], [address], [facility], [place], [address], 3 11:25:11 MAMMO, screening , digital, bilateral 2021 022 [facility] (Mammography), [address], [place], [address], 3 07:06:40 Medication Orders Macrobid 100 mg capsule 2021 022 [email or web address] [facility], [address] [place] [address], [place], [address], 3 15:16:02 Patient TargetsNo targets recorded. Patient Instructions Encounter Date Encounter Id Patient Instructions Last Modified By Organization Details Last Modified Time 04/27/2021 [id number] learning about healthy weight Not available 04/27/2021 13:45:19 urinary tract infection in women information Not available 04/27/2021 13:45:19 urinary tract infection in women information Not available 04/27/2021 13:46:54 heavy menstrual periods: care instructions Not available 04/27/2021 13:46:54 She is here as a new patient for annual exam. she had symptoms of vaginal pruritis two weeks ago, used Monistat 7 with no benefit, then 3 days ago took a Diflucan she had left over, and her symptoms are much improved now. She has a lifelong history of menorrhagia. She was started on the OCP at age 13 due to heavy, heavy bleeding with menses. She took the OCP straight through until 2011, and has been sexually active without control since then. 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 She does not desire fertility now. On her heaviest days she goes through a super tampon every hour, for three days, then it lightens up somewhat for an additional 4- 5 days of bleeding. She has Grave's, has been on methimazole 5 mg since 04/27. She has not had any blood testing done in a year or so. Same partner for 2 years, she requests full STI testing, just to be sure. Check CBC, iron studies for menorrhagia, check TSH and FT4 on methimazole and has menorrhagia, and check STI studies. She appears to be doing well. She is advised to get 1500 mg of calcium daily into her diet and supplements combined. We discussed the benefits of adequate vitamin D supplementation to at least 400 units daily, daily aerobic exercise of 30 minutes, and stress reduction. Monthly self breast exam was taught, and stressed, and is advised to call if she discovers any new mass in the breast. Not available 04/27/2021 14:02:41 05/03/2022 [id number] learning about healthy weight Not available 05/03/2022 15:51:14 she is here for annual exam, doing well, not using contorl, is aware she is running a risk of . Has not had a mammogram in 2 years, is willing to go. Did nto get blood work last year that was ordered. _ note from 2021: She is here as a new patient for annual exam. she had symptoms of vaginal pruritis two weeks ago, used Monistat 7 with no benefit, then 3 days ago took a Diflucan she had left over, and her symptoms are much improved now. She has a lifelong history of menorrhagia. She was started on the OCP at age 13 due to heavy, heavy bleeding with menses. She took the OCP straight through until 2011, and has been sexually active without control since then. 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 She does not desire fertility now. On her heaviest days she goes through a super tampon every hour, for three days, then it lightens up somewhat for an additional 4- 5 days of bleeding. She has Grave's, has been on methimazole 5 mg since 04/27. She has not had any blood testing done in a year or so. Same partner for 2 years, she requests full STI testing, just to be sure. Check CBC, iron studies for menorrhagia, check TSH and FT4 on methimazole and has menorrhagia, and check STI studies. __ She appears to be doing well. Monthly self breast exam was taught, and stressed, and is advised to call if she discovers any new mass in the breast. Not available 05/03/2022 15:51:36 05/06/2023 [id number] learning about healthy weight Not available 05/06/2023 12:06:55 She is here for annual, doing well, mammo 05/30 was birads 1. Her last menses was 10/30, she is not have significant vasomotor symptoms, she has one hot flashes many mornings, and is sleeping well at night. Note from 2022: she is here for annual exam, doing well, not using contorl, is aware she is running a risk of . Has not had a mammogram in 2 years, is willing to go. Did nto get blood work last year that was ordered. ____ Note from 2021: She is here as a new patient for annual exam. she had symptoms of vaginal pruritis two weeks ago, used Monistat 7 with no benefit, then 3 days ago took a Diflucan she had left over, and her symptoms are much improved now. She has a lifelong history of menorrhagia. She was started on the OCP at age 13 due to heavy, heavy bleeding with menses. She took the OCP straight through until 2011, and has been sexually active without control since then. 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 She does not desire fertility now. On her heaviest days she goes through a super tampon every hour, for three days, then it lightens up somewhat for an additional 4- 5 days of bleeding. She has Grave's, has been on methimazole 5 mg since 04/27. She has not had any blood testing done in a year or so. Same partner for 2 years, she requests full STI testing, just to be sure. Check CBC, iron studies for menorrhagia, check TSH and FT4 on methimazole and has menorrhagia, and check STI studies. Monthly self breast exam was taught, and stressed, and is advised to call if she discovers any new mass in the breast. Perimenopause discussed. Not available 05/06/2023 12:07:20 06/19/2024 [id number] learning about healthy weight Not available 06/19/2024 15:29:23 She is here for annual, doing well. No menses since 10/2022. Note from 2023: She is here for annual, doing well, mammo 05/30 was birads 1. Her last menses was 10/30, she is not have significant vasomotor symptoms, she has one hot flashes many mornings, and is sleeping well at night. She appears to be doing well. Monthly self breast exam was taught, and stressed, and is advised to call if she discovers any new mass in the breast. We discussed menopause symptoms and hers are mild, and she feels she does not need treatment. Not available 06/19/2024 15:41:55 Reason for Referral None Reported. Results Created Date Observation Date Name Description Value Unit Range Abnormal Flag Note LastModifiedBy Organization Detail LastModifiedTime 04/28/19 22 04/27/2021 URINE CULTU RE comments [facility] [address] [facility] [place] [address] Medic al Dire shiv alfredo MD SOUR E: URINE ,JONELLE N CATCH ; Not Available [facility] [address] [place], [address], 04/28/2021 12:52:46 04/28/19 22 04/28/2021 URINE CULTU RE urine culture [facility] a [facility] of [facility] [address] [facility] [place] [address] Medic al Direc shiv Denisse alfredo MD COLLE CTION TIME: 2021 1:30: 00 PM -04:0 0 URINE CULTU RE No growt h F Not Available [facility] [address] [place], [address], 04/28/2021 12:52:46 04/28/19 22 04/27/2021 GENER AL5CA SE [id number] Chlam ydia: NEGAT JOSE F N. gonor rhoea e: NEGAT JOSE F Compl eted on 04-29 CLINI ALEXA INFOR MATIO N: LPS no resul ts, [z01. 419, z11.3 ] SOURC E: ThinP rep Pap for CT/GC Gross Descr iptio n: ThinP rep Vial Recei davis. Physi luanns KATT N DAVID INGRAM/ [phone] Not Available [facility], Cytopathology Service [address] [place], [address], 04/29/2021 11:05:39 04/28/1904/27/2021 PAP1C ASE [id number] ThinP rep Pap, Image d: NEGAT JOSE F FOR SQUAM OUS INTRA EITHE LIAL LESIO N AND MALIG RIDDHI . Note: The Pap test is a scree trell test with an inher ent false negat jose f rate. Autom ated presc reeni rosette of all liqui d based speci mens is perfo rmed by the ThinP rep Imagi ng Syste m unles s other lynch state d. Sara Clement hers , CT( CP) (Case elect juanjose muhammad shell d 05 05 2021) ADEQU ACY: Satis facto ry Endoc ervic al/tr ansfo rmati on zone compo nent prese nt. SOURC E: ThinP rep Pap HPV IF ASCUS , Cervi alexa, Image d CLINI ALEXA INFOR MATIO N: HPV If Diagn osis of ASCUS . lps no resul ts, [Z01. 419, Z11.3 ] Not Available [facility], Cytopathology Service [address] [place], [address], 05/06/2021 07:35:54 04/28/19 22 04/27/2021 urina lysis , dipst ick GLU Negati ve Not Available In-Office Order Internal Use Only DO Not Attach Compendium DO Not Attach Compendium, Do Not Delete/merge, 04/27/2021 13:46:25 04/28/19 22 04/27/2021 urina lysis , dipst ick ALEJANDRO Negati ve Not Available In-Office Order Internal Use Only DO Not Attach Compendium DO Not Attach Compendium, Do Not Delete/merge, [id number] 04/27/2021 13:46:25 04/28/19 22 04/27/2021 urina lysis , dipst ick KET Negati ve Not Available In-Office Order Internal Use Only DO Not Attach Compendium DO Not Attach Compendium, Do Not Delete/merge, 04/27/2021 13:46:25 04/28/19 22 04/27/2021 urina lysis , dipst ick SG 1.005 Not Available In-Office Order Internal Use Only DO Not Attach Compendium DO Not Attach Compendium, Do Not Delete/merge, [id number] 04/27/2021 13:46:25 04/28/19 22 04/27/2021 urina lysis , dipst ick BLO Hemoly zed : Trace Not Available In-Office Order Internal Use Only DO Not Attach Compendium DO Not Attach Compendium, Do Not Delete/merge, 04/27/2021 13:46:25 04/28/19 22 04/27/2021 urina lysis , dipst ick pH 6.0 Not Available In-Office Order Internal Use Only DO Not Attach Compendium DO Not Attach Compendium, Do Not Delete/merge, [facility] 04/27/2021 13:46:25 04/28/19 22 04/27/2021 urina lysis , dipst ick PRO Negati ve Not Available In-Office Order Internal Use Only DO Not Attach Compendium DO Not Attach Compendium, Do Not Delete/merge, [facility] 04/27/2021 13:46:25 04/28/19 22 04/27/2021 urina lysis , dipst ick URO 0.2 E.U. / dl Not Available In-Office Order Internal Use Only DO Not Attach Compendium DO Not Attach Compendium, Do Not Delete/merge, [facility] 04/27/2021 13:46:25 04/28/19 22 04/27/2021 urina lysis , dipst ick NIT negati ve Not Available In-Office Order Internal Use Only DO Not Attach Compendium DO Not Attach Compendium, Do Not Delete/merge, [facility] 04/27/2021 13:46:25 04/28/19 22 04/27/2021 urina lysis , dipst ick COTY Negati ve Not Available In-Office Order Internal Use Only DO Not Attach Compendium DO Not Attach Compendium, Do Not Delete/merge, [facility] 04/27/2021 13:46:25 04/28/19 22 04/27/2021 fecal occul t blood , stool Occult Blood negati ve Not Available In-Office Order Internal Use Only DO Not Attach Compendium DO Not Attach Compendium, Do Not Delete/merge, [facility] 04/27/2021 13:05:16 04/28/19 22 04/27/2021 urina lysis , dipst ick GLU Negati ve Not Available In-Office Order Internal Use Only DO Not Attach Compendium DO Not Attach Compendium, Do Not Delete/merge, [facility] 04/27/2021 13:24:26 04/28/19 22 04/27/2021 urina lysis , dipst ick ALEJANDRO Negati ve Not Available In-Office Order Internal Use Only DO Not Attach Compendium DO Not Attach Compendium, Do Not Delete/merge, [facility] 04/27/2021 13:24:26 04/28/19 22 04/27/2021 urina lysis , dipst ick KET Negati ve Not Available In-Office Order Internal Use Only DO Not Attach Compendium DO Not Attach Compendium, Do Not Delete/merge, [facility] 04/27/2021 13:24:26 04/28/19 22 04/27/2021 urina lysis , dipst ick SG 1.010 Not Available In-Office Order Internal Use Only DO Not Attach Compendium DO Not Attach Compendium, Do Not Delete/merge, [facility] 04/27/2021 13:24:26 04/28/19 22 04/27/2021 urina lysis , dipst ick BLO Hemoly zed : Trace Not Available In-Office Order Internal Use Only DO Not Attach Compendium DO Not Attach Compendium, Do Not Delete/merge, [facility] 04/27/2021 13:24:26 04/28/19 22 04/27/2021 urina lysis , dipst ick pH 6.0 Not Available In-Office Order Internal Use Only DO Not Attach Compendium DO Not Attach Compendium, Do Not Delete/merge, [facility] 04/27/2021 13:24:26 04/28/19 22 04/27/2021 urina lysis , dipst ick PRO Negati ve Not Available In-Office Order Internal Use Only DO Not Attach Compendium DO Not Attach Compendium, Do Not Delete/merge, [facility] 04/27/2021 13:24:26 04/28/19 22 04/27/2021 urina lysis , dipst ick URO 0.2 E.U. / dl Not Available In-Office Order Internal Use Only DO Not Attach Compendium DO Not Attach Compendium, Do Not Delete/merge, [facility] 04/27/2021 13:24:26 04/28/19 22 04/27/2021 urina lysis , dipst ick NIT negati ve Not Available In-Office Order Internal Use Only DO Not Attach Compendium DO Not Attach Compendium, Do Not Delete/merge, [facility] 04/27/2021 13:24:26 04/28/19 22 04/27/2021 urina lysis , dipst ick COTY Negati ve Not Available In-Office Order Internal Use Only DO Not Attach Compendium DO Not Attach Compendium, Do Not Delete/merge, [id number] 04/27/2021 13:24:26 05/04/19 23 05/03/2022 [facility] results Patie nt Name: VEL TATE : 1975 (Age: 46) Lab Acces fred #: [id number] Colle ction Date: 2022 Acces fred Date: 2022 Sign Out Date: 023 Tissu e Sourc e: 1: THINP REP [employer] PAP TEST, CERVI ALEXA: Final Diagn osis: NEGAT JOSE F FOR INTRA EPITH ELIAL LESIO N OR MALIG RIDDHI . Satis facto ry for evalu ation . Endoc ervic al/tr ansfo rmati on zone ABSEN T. Clini alexa Histo ry: Date of Last Menst rual Perio d: Menst rual Histo ry: not avail able Contr acept jose f Histo ry: not avail able Ancil keerthi Testi ng: HPV (ASCU S) Case image d by the ThinP rep Imagi ng Syste m with shahida luo or caridad morin. Perfo rmed at [facility] ate Refer [facility], [address] [place] Clini alexa Histo ry (othe r): z01.4 19, 2 neg, routi ne scree n Phone #: [phone], [place] Patho logis t: [id number] Not Available [facility] (Centralized Electronic Ordering - All Locations) Patient Can Go To The Location Of Their Choice, [id number] 05/11/2022 13:18:05 05/04/19 23 05/03/2022 fecal occul t blood , stool Occult Blood negati ve Not Available In-Office Order Internal Use Only DO Not Attach Compendium DO Not Attach Compendium, Do Not Delete/merge, [id number] 05/03/2022 15:16:30 05/06/19 24 05/10/2023 IGP, RFX APTIM A HPV ASCU diagnosis: Commen t NEGAT JOSE F FOR INTRA EPITH ELIAL LESIO N OR MALIG RIDDHI . Not Available [facility] ([facility]) [address] [place], [address], 05/10/2023 18:06:12 05/06/19 24 05/10/2023 IGP, RFX APTIM A HPV ASCU specimen adequacy: Wei t Satis facto ry for evalu ation . No endoc ervic al compo nent is ident ified . Not Available [facility] ([facility]) [address] [place], [address], 05/10/2023 18:06:12 05/06/19 24 05/10/2023 IGP, RFX APTIM A HPV ASCU clinician provided ICD10: Wei brink Z01.4 19 Not Available [facility] ([facility]) [address] [place], [address], 05/10/2023 18:06:12 05/06/19 24 05/10/2023 IGP, RFX APTIM A HPV ASCU performed by: Contreras Segundo (ASCP ) Not Available [facility] ([facility]) [address] [place], [address], 05/10/2023 18:06:12 05/06/19 24 05/10/2023 IGP, RFX APTIM A HPV ASCU . . Not Available [facility] ([facility]) [address] [place], [address], 05/10/2023 18:06:12 05/06/19 24 05/10/2023 IGP, RFX APTIM A HPV ASCU note: Wei t The Pap smear is a scree trell test desig ivette to aid in the detec tion of edilberto ligna nt and malig nant condi tions of the uteri ne cervi x. It is not a diagn ostic proce dure and shoul d not be used as the sole means of detec ting cervi alexa cance r. Both false -posi tive and false -nega tive repor ts do occur . Not Available [facility] ([facility]) [address] [facility], [place], [address], 05/10/2023 18:06:12 05/06/19 24 05/10/2023 IGP, RFX APTIM A HPV ASCU test methodology: Commen t This liqui d based ThinP rep(R ) pap test was scree ivette with the use of an image guide d syste m. Not Available [facility] ([facility]) [address] [facility], [place], [address], 05/10/2023 18:06:12 05/06/19 24 05/10/2023 IGP, RFX APTIM A HPV ASCU . Commen t The HPV DNA refle x crite karey were not met with this speci men resul t there fore, no HPV testi ng was perfo rmed. Not Available [facility] ([facility]) [address] [facility], [place], [address], 05/10/2023 18:06:12 05/06/19 24 05/06/2023 hemog lobin , gastr ointe huseyin l, stool Occult Blood negati ve Not Available In-Office Order Internal Use Only DO Not Attach Compendium DO Not Attach Compendium, Do Not Delete/merge, [id number] 05/06/2023 11:33:05 06/20/19 25 06/21/2024 IGP, RFX APTIM A HPV ASCU diagnosis: Commen t NEGAT JOSE F FOR INTRA EPITH ELIAL LESIO N OR MALIG RIDDHI . THIS SPECI MEN WAS RESCR EENED PART OF OUR QUALI TY CONTR OL PROGR AM. Not Available [facility] ([facility]) [address] [facility], [place], [address], 06/21/2024 16:32:44 06/20/19 25 06/21/2024 IGP, RFX APTIM A HPV ASCU specimen adequacy: Commen t Satis facto ry for evalu ation . Endoc ervic al and/o r squam ous metap lasti c cells (endo cervi alexa compo nent) are prese nt. Not Available [facility] ([facility]) [address] [place], [address], 06/21/2024 16:32:44 06/20/19 25 06/21/2024 IGP, RFX APTIM A HPV ASCU clinician provided ICD10: Wei brink Z01.4 19 Not Available [facility] ([facility]) [address] [place], [address], 06/21/2024 16:32:44 06/20/19 25 06/21/2024 IGP, RFX APTIM A HPV ASCU performed by: Wei Garcia , Cytol ogist (ASCP ) Not Available [facility] ([facility]) [address] [place], [address], 06/21/2024 16:32:44 06/20/19 25 06/21/2024 IGP, RFX APTIM A HPV ASCU QC reviewed by: Wei Hair , Cytol ogist (ASCP ) Not Available [facility] ([facility]) [address] [place], [address], 06/21/2024 16:32:44 06/20/19 25 06/21/2024 IGP, RFX APTIM A HPV ASCU . . Not Available [facility] ([facility]) [address] [place], [address], 06/21/2024 16:32:44 06/20/19 25 06/21/2024 IGP, RFX APTIM A HPV ASCU note: Wei brink The Pap smear is a scree trell test desig ivette to aid in the detec tion of edilberto ligna nt and malig nant condi tions of the uteri ne cervi x. It is not a diagn ostic proce dure and shoul d not be used as the sole means of detec ting cervi alexa cance r. Both false -posi tive and false -nega tive repor ts do occur . Not Available [facility] ([facility]) [address] [facility], [place], [address], 06/21/2024 16:32:44 06/20/19 25 06/21/2024 IGP, RFX APTIM A HPV ASCU test methodology: Commen t This liqui d based ThinP rep(R ) pap test was gianfranco steele with the use of an image guide hanna cornell. Not Available [facility] ([facility]) [address] [place], [address], 06/21/2024 16:32:44 06/20/19 25 06/21/2024 IGP, RFX APTIM A HPV ASCU . Commen t The HPV DNA refle x crite karey were not met with this speci men resul t there fore, no HPV testi ng was perfo rmed. Not Available [facility] ([facility]) [address] [facility], [place], [address], 06/21/2024 16:32:44 06/20/19 25 06/19/2024 hemog lobin , gastr ointe huseyin l, stool Occult Blood negati ve Not Available In-Office Order Internal Use Only DO Not Attach Compendium DO Not Attach Compendium, Do Not Delete/merge, [id number] 06/19/2024 15:23:21 05/29/19 23 05/28/2022 MAMMO , scree trell, digit al, bilat eral No observ ation record ed. [facility] [address] [facility] [address], [place], [address], 05/28/2022 11:41:58 Result Notes None recorded. Problems Name Problem SNOMED Code Status Onset Date Resolution Date Notes Provider Name and Address Organization Details Recorded Time Graves' disease [id number] Active 2021 Yazmin Koch MD [address] [facility],[address], [place], [address], [place] - [facility], 2 13:59:50 Menorrhagia 061523060 Active 2021 lifelong Yazmin Koch MD [address] [facility],[address], [place], [address], [place] - [facility], 2 14:00:02 Problem Notes None recorded. Procedures Surgical History Date Name Laterality Status Provider Name and Address Organization Details Recorded Time 3 Most Recent Mammogram completed guido ravi [place] - [facility], 05/06/2023 11:41:42 Imaging Results None recorded. Procedure Notes None recorded. Medical Equipment None Reported. Allergies Allergen ID Allergen Name Allergen Category Reaction Reaction Severity Criticality Documentation Date Start Date Code Code System Note Provider Name and Address Organization Details Recorded Time aspirin medicatio n other Not available Not available 04/27/2021 1191 RxNorm shake Rebecca meza [place] - [facility], 2 13:09:22 Medications Name Sig Start Date Stop Date Status Note LastModified by Organization Details LastModified Time lorazepam 0.5 mg tablet TAKE 1 TABLET BY MOUTH THREE TIMES DAILY NEEDED active Not Available Not Available No t Available trazodone 100 mg tablet TAKE 1/2 (ONE-HALF ) TABLET BY MOUTH ONCE DAILY AT BEDTIME 05/05 completed Not Available Not Available Not Available phenazopyri dine 100 mg tablet TAKE 1 TABLET BY MOUTH THREE TIMES DAILY 06/19 completed Not Available Not Available Not Available buspirone 10 mg tablet TAKE 1 TABLET BY MOUTH TWICE DAILY 05/05 completed Not Available Not Available Not Available methimazole 5 mg tablet TAKE 1 TABLET BY MOUTH ONCE DAILY active Not Available Not Available No t Available montelukast 10 mg tablet TAKE 1 TABLET BY MOUTH ONCE DAILY active Not Available Not Available No t Available lorazepam 1 mg tablet TAKE 1 TABLET BY MOUTH THREE TIMES DAILY 05/05 completed Not Available Not Available Not Available amoxicillin 875 mg-potassiu m clavulanate 125 mg tablet TAKE 1 TABLET BY MOUTH TWICE DAILY FOR 5 DAYS 06/19 completed Not Available Not Available Not Available nitrofurant oin monohydrate /macrocryst als 100 mg capsule TAKE 1 CAPSULE BY MOUTH TWICE DAILY FOR 7 DAYS 05/03 completed Not Available Not Available Not Available Zyrtec 10 mg capsule Take by oral route. active Not Available Not Available No t Available Paxlovid 300 mg (150 mg x 2)-100 mg tablets in a dose pack TAKE 3 TABLETS TOGETHER (TWO 150 MG NIRMATREL VIR TABLETS AND ONE 100 MG RITONAVIR TABLET) BY MOUTH TWICE DAILY FOR 5 DAYS. 05/05 completed Not Available Not Available Not Available Vitals Date Recorded Body height Body mass index (BMI) Body weight Body temperature Heart rate Systolic And Diastolic Provider Name and Address Organization Details Last Updated DateTime 2 162.56 cm 26.3 kg/m2 31666.3 5 g 97.4 [degF] 70 /min 117/61 mm[Hg] Rebecca Price in [facility], 2 13:07:55 Date Recorded Body weight Body mass index (BMI) Body height Heart rate Systolic And Diastolic Provider Name and Address Organization Details Last Updated DateTime 05/03/2022 67698.08 g 25.2 kg/m2 162.56 cm 71 /min 129/63 mm[Hg] Grace Price in [facility], 05/03/2022 15:17:33 Date Recorded Body height Body mass index (BMI) Body weight Body temperature Heart rate Systolic And Diastolic Provider Name and Address Organization Details Last Updated DateTime 4 162.56 cm 23.8 kg/m2 40531.6 2 g 96.8 [degF] 67 /min 125/63 mm[Hg] guido Price in [facility], 4 11:36:32 Date Recorded Body height Body mass index (BMI) Body weight Body temperature Heart rate Systolic And Diastolic Provider Name and Address Organization Details Last Updated DateTime 5 162.56 cm 24.9 kg/m2 99211.6 1 g 98.1 [degF] 83 /min 142/58 mm[Hg] Rebecca Price in [facility], 5 15:17:46 Social History Question Answer Notes LastModified by Organizat ion Details LastModified Time Tobacco Smoking Status Never Smoker Rebecca meza [place] - [facility], 04/27/2021 13:14:21 How Many Years Have You Consumed Alcohol? 20 Information not available 04/27/2021 What Is Your Level Of Caffeine Consumption? Occasional Rare Information not available 05/03/2022 In The 14 Days Before Symptom Onset, Have You Had Close Contact With A Laboratory-confir med COVID-19 While That Case Was Ill? No Information not available 04/27/2021 In The 14 Days Before Symptom Onset, Have You Had Close Contact With A Person Who Is Under Investigation For COVID-19 While That Person Was Ill? No Information not available 04/27/2021 Have You Been To An Area Known To Be High Risk For COVID-19? No Information not available 04/27/2021 What Is The Highest Grade Or Level Of School You Have Completed Or The Highest Degree You Have Received? [id number] Information not available 04/27/2021 Who Is Your Employer? [employer] Information not available 04/27/2021 Are There Any Guns Present In Your Home? No Information not available 04/27/2021 To Which Gender Do You Self-identify? Female Information not available 04/27/2021 What Was The Date Of Your Most Recent Tobacco Screening? 06/19/2024 Information not available 06/19/2024 What Is Your Relationship Status? Single Information not available 05/06/2023 Are You Sexually Active? Yes Information not available 04/27/2021 How Many Days In The Past Year Have You Consumed 4 Or More Drinks? 0 Information no t available 04/27/2021 Sex: Female Functional Status Question Answer Note LastModified by Organizat ion Details LastModified Time Do you use any illicit or recreational drugs? No Information not available 04/27/2021 Do you or have you ever used any other forms of tobacco or nicotine? No Information not available 04/27/2021 What is your level of alcohol consumption? Occasional rare Information not available 05/03/2022 Are you currently employed? 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 Occasional Information not available 04/27/2021 Mental Status Question Answer Note LastModified by Organization D etails LastModified Time Do you feel stressed (tense, restless, nervous, or anxious, or unable to sleep at night)? [id number] Information not available 05/06/2023 Family History Relationship Description Onset Age of this Age Resolved Age Notes LastModified by Organization Details LastModified Time Mother Heart disease her side lots of heart issue. . [email or web address] Not available 04/27/2021 13:12:26 Notes:dont know father side Medical History Condition Response Anesthesia complications N High Blood Pressure N Candidate for MyRisk panel N Autoimmune Condition N Lung Disease N Depression N Defects or Inherited Disease N History of Ovarian Cancer N BRCA testing in past N Anxiety Disorder Y Arthritis N Infertility N History of Cancer N Endometriosis N Thyroid Problems Y Kidney or Bladder Problems N GI Problems N Anemia N History of Breast Cancer N JUDY exposure N Osteopenia N Psychiatric Illness N Diabetes N Headaches or Migraines Y Asthma Y Hepatitis N Heart Disease N Hypertension N Osteoporosis N Gynecological History Statement/Question Response Flow Heavy Date of LMP 11/01/2022 Frequency of Cycle (Q days) Menses Monthly N Duration of Flow (days) Age at Menarche 13 Current Control Method None Most Recent Mammogram 05/28/2022 Age at First Child 1 Obstetrics History GPAL:G 0 P 0 0 0 0 Immunizations Vaccine Type Date Status Note Provider Nam e and Address Organization Details Recorded Time COVID-19, mRNA, LNP-S, PF, 100 mcg/0.5mL dose or 50 mcg/0.25mL dose 1 completed [place] [facility], 04/27/2021 13:11:14 Influenza, split virus, quadrivalent, preservative 1 completed [place] [facility], 04/27/2021 13:11:35 Past Encounters Encounter ID Performer Location Encounter Start Date Encounter Closed Date Diagnosis/Indication Diagnosis SNOMED-CT Code Diagnosis ICD10 Code Diagnosis IMO Codes Diagnosis Note [id number] MD YAZMIN William MD [address] [place] [address], [place] [address] 04/27/2021 12:57:22 04/27/2021 15:48:13 Specialized medical examination 32460084 Z01.419 Screening for malignant neoplasm of rectum 964260288 Z12.12 Screening mammography 24 599946 Z12.31 Acute lowe r urinary tract infection 066025256 R30.0 Menorrhagia 916263050 N9 2.0 Venereal d isease screening 136392541 Z11.3 Graves' disease 94496416 4 E05.00 [id number] MD YAZMIN William MD [address] [place] [address],[facility] [place] [address] 05/03/2022 15:11:15 05/03/2022 16:03:29 Specialized medical examination 86435245 Z01.419 Screening for malignant neoplasm of rectum 635164440 Z12.12 Screening mammography 24 890225 Z12.31 [id number] MD YAZMIN William MD [address] [place] [address],[facility] [place] [address] 05/06/2023 11:28:24 05/06/2023 12:41:17 Specialized medical examination 15145398 Z01.419 Screening for malignant neoplasm of rectum 534211323 Z12.12 Screening mammography 24 285477 Z12.31 [id number] MD YAZMIN William MD [address] [place] [address],[facility] [place] [address] 06/19/2024 15:12:43 06/21/2024 09:05:48 Specialized medical examination 01950447 Z01.419 Screening for malignant neoplasm of rectum 311230827 Z12.12 Screening mammography 24 429006 Z12.31 Health Concerns Section Related Observation LastModified by Organization Detai ls LastModified Time None Recorded Concern Status LastModified by Organization Details LastModified Time None Recorded Advance Directives Directive None Recorded Payers Insurance Date Sequence Insurance Name Policy Number Policy Christian Covered Member ID Christian Member ID Guarantor Name 09/28/2024 1 [facility] (PP[facility] [id number] Michelle Tate [id number] Michelle Tate 05/06/2023 2 [facility] [employer] (PPO) Michelle Tate [id number] Michelle Tate 05/06/2023 [employer] Michelle Tate [id number] Michelle Tate Notes Date Note Type Note Provider Name and Address Organization Details Recorded Time 04/27/2021 text/html She is here as a new patient for annual exam. she had symptoms of vaginal pruritis two weeks ago, used Monistat 7 with no benefit, then 3 days ago took a Diflucan she had left over, and her symptoms are much improved now. She has a lifelong history of menorrhagia. She was started on the OCP at age 13 due to heavy, heavy bleeding with menses. She took the OCP straight through until 2011, and has been sexually active without control since then. 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 She does not desire fertility now. On her heaviest days she goes through a super tampon every hour, for three days, then it lightens up somewhat for an additional 4- 5 days of bleeding. She has Grave's, has been on methimazole 5 mg since 04/27. She has not had any blood testing done in a year or so. Yazmin Koch MD [address] [facility],[address] [place] [address], [place] [facility], 04/27/2021 14:03:19 05/03/2022 text/html she is here for annual exam, doing well, not using contorl, is aware she is running a risk of . Has not had a mammogram in 2 years, is willing to go. Did nto get blood work last year that was ordered. __ note from 2021: She is here as a new patient for annual exam. she had symptoms of vaginal pruritis two weeks ago, used Monistat 7 with no benefit, then 3 days ago took a Diflucan she had left over, and her symptoms are much improved now.She has a lifelong history of menorrhagia. She was started on the OCP at age 13 due to heavy, heavy bleeding with menses. She took the OCP straight through until 2011, and has been sexually active without control since then. 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 She does not desire fertility now.On her heaviest days she goes through a super tampon every hour, for three days, then it lightens up somewhat for an additional 4- 5 days of bleeding.She has Grave's, has been on methimazole 5 mg since 04/27. She has not had any blood testing done in a year or so.Same partner for 2 years, she requests full STI testing, just to be sure. Check CBC, iron studies for menorrhagia, check TSH and FT4 on methimazole and has menorrhagia, and check STI studies. Yazmin Koch MD [address] [facility],[address], [place], [address], [place] [facility], 05/03/2022 15:51:55 05/06/2023 text/html She is here for annual, doing well, mammo 05/30 was birads 1. Her last menses was 10/30, she is not have significant vasomotor symptoms, she has one hot flashes many mornings, and is sleeping well at night. Note from 2022: she is here for annual exam, doing well, not using contorl, is aware she is running a risk of .Has not had a mammogram in 2 years, is willing to go. Did not get blood work last year that was ordered. Note from 2021: She is here as a new patient for annual exam. she had symptoms of vaginal pruritis two weeks ago, used Monistat 7 with no benefit, then 3 days ago took a Diflucan she had left over, and her symptoms are much improved now.She has a lifelong history of menorrhagia. She was started on the OCP at age 13 due to heavy, heavy bleeding with menses. She took the OCP straight through until 2011, and has been sexually active without control since then. 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 She does not desire fertility now.On her heaviest days she goes through a super tampon every hour, for three days, then it lightens up somewhat for an additional 4- 5 days of bleeding.She has Grave's, has been on methimazole 5 mg since 04/27. She has not had any blood testing done in a year or so.Same partner for 2 years, she requests full STI testing, just to be sure. Check CBC, iron studies for menorrhagia, check TSH and FT4 on methimazole and has menorrhagia, and check STI studies. Yazmin Koch MD [address], [place], [address], [place] - [facility], 05/06/2023 12:07:41 06/19/2024 text/html She is here for annual, doing well. No menses since 10/2022. _ Note from 2023: She is here for annual, doing well, mammo 05/30 was birads 1. Her last menses was 10/30, she is not have significant vasomotor symptoms, she has one hot flashes many mornings, and is sleeping well at night. Yazmin Koch MD [address], [place], [address], [place] - [facility], 06/19/2024 15:42:30 OBGyn Episode No OBEpisode recorded.
--- OUTSIDE RECORDS SUMMARY | 2025-01-21 20:32 | XMS_ITS | Clinical Summary ---
Author Organization [address] Address [address] [place] [address] Phone Care Team Providers Care Dental Surgery Doctor Name Role Phone Perla Gonzales MD Primary Care Provider [phone] Encounters Date Type Department Care Team Description 01/15/2025 8:00 AM EST Lab Draw Station - [address] [place] [id number] Thyrotoxicosis without thyroid storm from Last 3 Months Social History Tobacco Use Types Packs/Day Years Used Date Smoking Tobacco: Never Assessed Comments Unknown Sex and Gender Information Value Date Recorded Sex Assigned at Not on file Legal Sex Female 10:59 PM EST Gender Identity Not on file Sexual Orientation Not on file Plan of Treatment Health Maintenance Due Date Last Done Comments Breast Cancer Screening 1974 Colorectal Cancer Screening: Colonoscopy 1974 DTaP,Tdap,and Td Vaccines (1 - Tdap) 1993 Hepatitis B Vaccines (1 of 3 - 19+ 3-dose series) 1993 Cervical Cancer Screening: P ap Smear 07/05/1995 Depression Screening 02/08/2024 Pneumococcal Vaccine: 50+ Ye ars (1 of 1 - PCV) 2024 Zoster Vaccines (1 of 2) 2024 COVID-19 Vaccine ( - 2024-2 6 season) 2024 Influenza Vaccine (#1) 2024 HIV Screening 11/27/2024 Hepatitis C Screening 11/27/2024 Social Influencers of Health Screening 11/27/2024 Cholesterol Screening (Lipid Panel) 11/27/2029 11/27/2024 RSV Immunization Adult Patie nts (1 - 1-dose 75+ series) 2049 HIB Vaccines Aged Out No longer eligi ble based on patient's age to complete this topic HPV Vaccines Aged Out No longer eligi ble based on patient's age to complete this topic Hepatitis A Vaccines Aged Out No long er eligible based on patient's age to complete this topic IPV Vaccines Aged Out No longer eligi ble based on patient's age to complete this topic MMR Vaccines Aged Out No longer eligi ble based on patient's age to complete this topic Meningococcal ACWY Vaccine Aged Out N o longer eligible based on patient's age to complete this topic Meningococcal B Vaccine Aged Out No l onger eligible based on patient's age to complete this topic RSV Immunization Patients Un joyce 20 months Aged Out No longer eligible b ased on patient's age to complete this topic Varicella Vaccines Aged Out No longer eligible based on patient's age to complete this topic Procedures Procedure Name Priority Date/Time Associated Diagnosis Comments TRIIODOTHYRONINE FREE Routine 01/15/2025 8:01 AM EST Thyrotoxicosis without thyroid storm THYROID STIMULATING HORMONE Routine 01/15/2025 8:01 AM EST Thyrotoxicosis without thyroid storm THYROXINE FREE Routine 01/15/2025 8:01 AM EST Thyrotoxicosis without thyroid storm FREE THYROXINE WITH REFLEX TO FREE TRIIODOTHYRONINE Routine 11/27/2024 7:51 AM EDT Thyrotoxicosis with diffuse goiter Vitamin D deficiency disease Routine general medical examination at a health care facility CBC WITH AUTO DIFFERENTIAL Routine 11/27/2024 7:51 AM EDT Thyrotoxicosis with diffuse goiter Vitamin D deficiency disease Routine general medical examination at a health care facility COMPREHENSIVE METABOLIC PANEL Routine 11/27/2024 7:51 AM EDT Thyrotoxicosis with diffuse goiter Vitamin D deficiency disease Routine general medical examination at a health care facility THYROID STIMULATING HORMONE WITH REFLEX TO FREE T4 AND FREE T3 Routine 11/27/2024 7:51 AM EDT Thyrotoxicosis with diffuse goiter Vitamin D deficiency disease Routine general medical examination at a health care facility LIPID PANEL WITH REFLEX TO DIRECT LDL Routine 11/27/2024 7:51 AM EDT Thyrotoxicosis with diffuse goiter Vitamin D deficiency disease Routine general medical examination at a health care facility MICROALBUMIN CREATININE URINE RATIO Routine 11/27/2024 7:51 AM EDT Thyrotoxicosis with diffuse goiter Vitamin D deficiency disease Routine general medical examination at a [facility] care facility CBC AND DIFFERENTIAL Routine 11/27/2024 7:51 AM EDT Thyrotoxicosis with diffuse goiter Vitamin D deficiency disease Routine general medical examination at a [facility] care facility TRIIODOTHYRONINE FREE Routine 11/27/2024 7:51 AM EDT Thyrotoxicosis with diffuse goiter Vitamin D deficiency disease Routine general medical examination at [facility] facility from Last 3 Months Results * (ABNORMAL) Triiodothyronine free (01/15/2025 8:01 AM EST) Only the most recent of2 resultswithin the time period is included. T3, Free 835(H) 230 - 420 pcg/dL 01/15/2025 3:01 PM EST [facility] Blood Venous blood specimen / Unknown Venipuncture / Unknown 01/15/2025 8:01 AM EST 01/15/2025 10:23 AM EST us Perla Gonzales MD LAB BLOOD ORDERABLES Final Re sult [facility] [address] [place] [address], * (ABNORMAL) Thyroid stimulating hormone (01/15/2025 8:01 AM EST) TSH <0.01(L) 0.40 - 4.00 mcIU/mL 01/15/2025 3:07 PM EST [facility] Blood Venous blood specimen / Unknown Venipuncture / Unknown 01/15/2025 8:01 AM EST 01/15/2025 10:23 AM EST us Perla Gonzales MD LAB BLOOD ORDERABLES Final Re sult Performing Organization Address [facility]/ZIP Co de Phone Number [facility] [address] [place] [address], [place] [phone] * (ABNORMAL) Thyroxine free (01/15/2025 8:01 AM EST) Free T4 2.36(H) 0.70 - 1.80 ng/dL 01/15/2025 3:03 PM EST [facility] Blood Venous blood specimen / Unknown Venipuncture / Unknown 01/15/2025 8:01 AM EST 01/15/2025 10:23 AM EST us Perla Gonzales MD LAB BLOOD ORDERABLES Final Re sult Performing Organization Address [facility] Co de Phone Number [facility] [address] [place] [address], [place] [phone] * (ABNORMAL) Thyroid stimulating hormone with reflex to free t4 and free t3 (11/27/2024 7:51 AM EDT) Pathologist [facility] TSH <0.05(L) 0.40 - 4.00 mcIU/mL LAB CHEMISTRY METHOD 11/27/2024 10:55 AM EDT [facility] Blood Venous blood specimen / Unknown Venipuncture / Unknown 11/27/2024 7:51 AM EDT 11/27/2024 8:38 AM EDT us Perla Gonzales MD LAB BLOOD ORDERABLES Final Re sult Performing Organization Address [facility]/ZIP Co de Phone Number [facility] [address] [place] [address], [place] [phone] * (ABNORMAL) Free thyroxine with reflex to free triiodothyronine (11/27/2024 7:51 AM EDT) Free T4 3.33(H) 0.70 - 1.80 ng/dL LAB CHEMISTRY METHOD 11/27/2024 11:15 AM EDT [facility] Blood Venous blood specimen / Unknown Venipuncture / Unknown 11/27/2024 7:51 AM EDT 11/27/2024 8:38 AM EDT us Perla Gonzales MD LAB BLOOD ORDERABLES Final Re sult [facility] [address] [place] [address], [place] [phone] * Lipid panel with reflex to direct LDL (11/27/2024 7:51 AM EDT) Cholesterol 136 0 - 200 mg/dL LAB CHEMISTRY METHOD 11/27/2024 9:29 AM [facility] Triglycerides 118 0 - 150 mg/dL LAB CHEMISTRY METHOD 11/27/2024 9:29 AM [facility] HDL 44 >=40 mg/dL LAB CHEMISTRY METHOD 11/27/2024 9:29 AM [facility] LDL Calculated 68 0 - 100 mg/dL LAB CHEMISTRY METHOD 11/27/2024 9:29 AM [facility] Comment:Estimated LDL Calcul ated using equation: Total cholesterol - HDL cholesterol - (Triglycerides/5) VLDL Cholesterol Dc 23.6 mg/dL LAB CHEMISTRY METHOD 11/27/2024 9:29 AM [facility] Non HDL Chol. (LDL+VLDL) 92 <145 mg/dL LAB CHEMISTRY METHOD 11/27/2024 9:29 AM [facility] Chol/HDL Ratio 3.1 0.0 - 4.4 LAB CHEMISTRY METHOD 11/27/2024 9:29 AM [facility] Blood Venous blood specimen / Unknown Venipuncture / Unknown 11/27/2024 7:51 AM EDT 11/27/2024 8:38 AM EDT us Perla Gonzales MD LAB BLOOD ORDERABLES Final Re sult [facility] [address] [place] [address], * CBC auto differential (11/27/2024 7:51 AM EDT) [facility] WBC 6.0 4.8 - 10.8 K/mcL LAB HEMETOLOGY METHOD 11/27/2024 8:45 AM EDT [facility] RBC 4.40 3.80 - 4.80 M/mcL LAB HEMETOLOGY METHOD 11/27/2024 8:45 AM EDT [facility] Hemoglobin 12.9 11.5 - 16.0 g/dL LAB HEMETOLOGY METHOD 11/27/2024 8:45 AM EDT [facility] Hematocrit 38.7 35.0 - 47.0 % LAB HEMETOLOGY METHOD 11/27/2024 8:45 AM EDT [facility] MCV 87.6 79.0 - 98.0 FL LAB HEMETOLOGY METHOD 11/27/2024 8:45 AM EDT [facility] MCH 29.2 27.0 - 32.0 pcg LAB HEMETOLOGY METHOD 11/27/2024 8:45 AM EDT [facility] MCHC 33.3 32.0 - 37.0 g/dL LAB HEMETOLOGY METHOD 11/27/2024 8:45 AM EDT [facility] RDW 11.9 11.0 - 15.0 % LAB HEMETOLOGY METHOD 11/27/2024 8:45 AM EDT [facility] Platelets 245 130 - 400 K/mcL LAB HEMETOLOGY METHOD 11/27/2024 8:45 AM [facility] MPV 9.1 7.0 - 11.0 FL LAB HEMETOLOGY METHOD 11/27/2024 8:45 AM [facility] NRBC 0.0 <1.0 % LAB HEMETOLOGY METHOD 11/27/2024 8:45 AM [facility] NRBC Absolute 0.00 <0.10 K/mcL LAB HEMETOLOGY METHOD 11/27/2024 8:45 AM [facility] Neutrophils Relative 40.0 % LAB HEMETOLOGY METHOD 11/27/2024 8:45 AM [facility] Lymphocytes Relative 44.8 % LAB HEMETOLOGY METHOD 11/27/2024 8:45 AM [facility] Monocytes Relative 11.4 % LAB HEMETOLOGY METHOD 11/27/2024 8:45 AM [facility] Eosinophils Relative 2.9 % LAB HEMETOLOGY METHOD 11/27/2024 8:45 AM [facility] Basophils Relative 0.7 % LAB HEMETOLOGY METHOD 11/27/2024 8:45 AM [facility] Immature Granulocytes Relative 0.2 % LAB HEMETOLOGY METHOD 11/27/2024 8:45 AM [facility] Neutrophils Absolute 2.39 1.50 - 7.00 K/mcL LAB HEMETOLOGY METHOD 11/27/2024 8:45 AM [facility] Lymphocytes Absolute 2.67 1.00 - 5.00 K/mcL LAB HEMETOLOGY METHOD 11/27/2024 8:45 AM [facility] Monocytes Absolute 0.68 0.20 - 1.00 K/mcL LAB HEMETOLOGY METHOD 11/27/2024 8:45 AM [facility] Eosinophils Absolute 0.17 0.00 - 0.50 K/mcL LAB HEMETOLOGY METHOD 11/27/2024 8:45 AM EDT [facility] Basophils Absolute 0.04 0.00 - 0.20 K/[facility] LAB HEMETOLOGY METHOD 11/27/2024 8:45 AM EDT [facility] Immature Granulocytes Absolute 0.01 0.00 - 0.03 K/[facility] HEMETOLOGY METHOD 11/27/2024 8:45 AM EDT [facility] Blood Venous blood specimen / Unknown Venipuncture / Unknown 11/27/2024 7:51 AM EDT 11/27/2024 8:38 AM EDT us Perla Gonzales MD LAB BLOOD ORDERABLES Final Re sult Performing Organization Address [facility]/ZIP Co de Phone Number [facility] [address] [place] [address], [place] [phone] * Microalbumin creatinine urine ratio (11/27/2024 7:51 AM EDT) Creatinine, Urine 78.0 mg/dL LAB CHEMISTRY METHOD 11/27/2024 9:35 AM EDT [facility] Microalb, Ur 7.9 0.0 - 29.0 mg/L LAB CHEMISTRY METHOD 11/27/2024 9:35 AM EDT [facility] Microalb/Creat Ratio 10 <30 mg/g creat LAB CHEMISTRY METHOD 11/27/2024 9:35 AM EDT [facility] Urine Urine specimen obtained by clean catch procedure / Unknown Non-blood Collection / Unknown 11/27/2024 7:51 AM EDT 11/27/2024 8:38 AM EDT us Perla Gonzales MD LAB URINE ORDERABLES Final Re sult Performing Organization Address [facility]/ZIP Co de Phone Number [facility] [address] [place] [address], [place] [phone] * Comprehensive metabolic panel (11/27/2024 7:51 AM EDT) Sodium 140 133 - 145 mmol/L LAB CHEMISTRY METHOD 11/27/2024 9:29 AM [facility] Potassium 3.9 3.5 - 5.5 mmol/L LAB CHEMISTRY METHOD 11/27/2024 9:29 AM [facility] Chloride 106 96 - 110 mmol/L LAB CHEMISTRY METHOD 11/27/2024 9:29 AM [facility] CO2 29 21 - 32 mmol/L LAB CHEMISTRY METHOD 11/27/2024 9:29 AM [facility] Anion Gap 5 3 - 11 LAB CHEMISTRY METHOD 11/27/2024 9:29 AM [facility] Glucose 94 70 - 100 mg/dL LAB CHEMISTRY METHOD 11/27/2024 9:29 AM [facility] BUN 8 5 - 25 mg/dL LAB CHEMISTRY METHOD 11/27/2024 9:29 AM [facility] Creatinine 0.78 0.50 - 1.10 mg/dL LAB CHEMISTRY METHOD 11/27/2024 9:29 AM [facility] eGFR 93 >=60 mL/min/1. 73m2 LAB CHEMISTRY METHOD 11/27/2024 9:29 AM [facility] Comment:Calculation based on the Chronic Kidney Disease Epidemiology Collaboration (CKD-EPI) equation refit without adjustment for race. BUN/Creatinine Ratio 10.3 LAB CHEMISTRY METHOD 11/27/2024 9:29 AM [facility] Calcium 9.8 8.5 - 10.5 mg/dL LAB CHEMISTRY METHOD 11/27/2024 9:29 AM [facility] AST (SGOT) 18 10 - 42 unit/L LAB CHEMISTRY METHOD 11/27/2024 9:29 AM [facility] ALT (SGPT) 29 10 - 60 unit/L LAB CHEMISTRY METHOD 11/27/2024 9:29 AM EDT [facility] Alkaline Phosphatase 85 42 - 121 unit/L LAB CHEMISTRY METHOD 11/27/2024 9:29 AM EDT [facility] Total Protein 6.5 6.0 - 8.0 g/dL LAB CHEMISTRY METHOD 11/27/2024 9:29 AM EDT [facility] Albumin 3.5 3.2 - 5.0 g/dL LAB CHEMISTRY METHOD 11/27/2024 9:29 AM EDT [facility] Total Bilirubin 0.8 0.0 - 1.4 mg/dL LAB CHEMISTRY METHOD 11/27/2024 9:29 AM EDT [facility] Blood Venous blood specimen / Unknown Venipuncture / Unknown 11/27/2024 7:51 AM EDT 11/27/2024 8:38 AM EDT Perla Gonzales MD LAB BLOOD ORDERABLES Final Re sult [facility] [address] [place] [address], from Last 3 Months Insurance [facility] Care Teams Dental Surgery Doctor Relationship Specialty Start Date End Date Perla Gonzales MD [address] [place], [place] [phone] PCP - General Internal Medicine 11/27/24
== END 2025-01-21 16:48 | disposition home or self-care (01) ==
LOC: HO.HMCC 14:05
PROVIDERS: PCP Internal Medicine; Visit Provider Internal Medicine
DX: E05.90 Thyrotoxicosis, unspecified without thyrotoxic crisis or storm (principal)